=== PATIENT | female | born 2000 | race Hispanic/Latino ===

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

== ENCOUNTER 2022-06-15 10:08 | Outpatient (CLI) | payer OTHER | END 2022-06-15 10:09 | disposition home or self-care (01) | LOC: BICULT 10:08 | PROVIDERS: ATTEND Family Medicine | DX: D24.1 Benign neoplasm of right breast (principal); N63.12 Unspecified lump in the right breast, upper inner quadrant ==